=== PATIENT | male | born 1970 | race African-American/Black ===

== ENCOUNTER 2020-02-12 12:59 | Emergency (ER) | payer OTHER ==
[2020-02-12] MEDS ORDERED: Lidocaine 4% Cream 5 GM TUBE w/ Tegaderm ONE (13:18)
[2020-02-12] MEDS ORDERED: Sodium Bicarbonate 2.5 MEQ/5 ML VIAL ONE (13:18)
[2020-02-12] MEDS ORDERED: Lidocaine 1% (PF) 30 ML VIAL ONE (13:18)
[2020-02-12] MEDS ORDERED: Boostrix 0.5 ML VIAL ONE (13:21)
[2020-02-12] MEDS ORDERED: Bacitracin 1 PK ONE (13:55)
== END 2020-02-12 14:05 | disposition home or self-care (01) ==
LOC: NAV ERS 12:59
DX: S01.81XA Laceration without foreign body of other part of head, initial encounter (principal); R73.03 Prediabetes; E78.5 Hyperlipidemia, unspecified; I10 Essential (primary) hypertension; Z79.84 Long term (current) use of oral hypoglycemic drugs; Z79.899 Other long term (current) drug therapy; X50.1XXA Overexertion from prolonged static or awkward postures, initial encounter
CPT/HCPCS: 12011; 90471; 90715; J2001

== ENCOUNTER 2020-02-19 12:30 | Emergency (ER) | payer OTHER | END 2020-02-19 12:48 | disposition home or self-care (01) | LOC: NAV ERS 12:30 | DX: S01.81XD Laceration without foreign body of other part of head, subsequent encounter (principal); I10 Essential (primary) hypertension; R73.03 Prediabetes; E78.5 Hyperlipidemia, unspecified; Z79.84 Long term (current) use of oral hypoglycemic drugs; Z79.899 Other long term (current) drug therapy; X58.XXXD Exposure to other specified factors, subsequent encounter ==